=== PATIENT | male | born 1965 | race Caucasian/White ===

== ENCOUNTER 2024-02-26 09:06 | Observation (INO) ==
--- NOTE | 2024-01-28 12:34 | PAT Medication Instructions ---
Medication Instructions Date of Service January 28, 2024 Home Medications hydrochlorothiazide 25 mg tablet 25 mg PO QPM ibuprofen 200 mg tablet (Advil) 200 mg PO TID PRN lisinopril 20 mg tablet 20 mg PO QAM ASK your surgeon for instructions ibuprofen 200 mg tablet (Advil) 200 mg PO TID PRN DO NOT take the morning of surgery lisinopril 20 mg tablet 20 mg PO QAM Take evening before surgery hydrochlorothiazide 25 mg tablet 25 mg PO QPM Other Notes NOTHING TO EAT OR DRINK AFTER MIDNIGHT. If you have any questions please call us at [phone] or [phone] or [phone] or [phone]
--- NOTE | 2024-02-04 09:38 | Anesthesiology Consultation ---
Date of Service February 04, 2024 Assessment & Plan (1) Encounter for pre-operative examination: Chart Review Chart Review: Acceptable Risk for Surgery (pending surgeon ordered PCP clearance ) and Patient seen in Pre Admission Testing - Awaiting PCP clearance 02/11/24 (Dr Otero ([facility]))- please fax preop testing to PCP for review Will leave to anesthesiologist discretion DOS if anesthesia will be done GA vs SAB (mild to moderate per 2021 ECHO) - Patient is NOT an ideal OPJ candidate (currently 23 hour obs) Per PAT appt on 02/04/24, no recent illness/disease exposures, illness related symptoms, or recent illness/disease positive tests. Will leave to surgeon's discretion if preop Covid testing needed Teaching & Discussion Pre-Anesthesia Teaching/Discussion Notes: Instructed NPO after midnight before surgery,except medications with 15 cc of water. Medication instructions provided according to the PAT guidelines. History Surgery Operation Date: 02/26/24 08:10 Proposed Procedures p Right Total Hip Arthroplasty - Amos Fernando MD Height/Weight Height: 5 ft 10 in Weight: 95.8 kg Allergies Allergy/AdvReac Type Severity Reaction Status Date / Time No Known Allergies Allergy Verified 01/26/24 09:41 Medications Home Medications Medication Instructions Recorded Confirmed Last Taken hydrochlorothiazide 25 mg tablet 25 mg PO QPM 01/26/24 01/26/24 Unknown ibuprofen 200 mg tablet (Advil) 200 mg PO TID PRN Pain 01/26/24 01/26/24 Unknown lisinopril 20 mg tablet 20 mg PO QAM 01/26/24 01/26/24 Unknown Past Medical History Medical History Aortic stenosis Bicuspid AV- mild to moderate aortic stenosis per ECHO 10/2021 Follows with PCP only Hypertension Osteoarthritis Exercise / Class Metabolic Activity II 4-5 Yardwork/Stairs/Walk up hill (one flight of stairs - no chest pain or SOB ) Past Family History Family History Mother Family history of reaction to anesthesia "long time to wake up" Past Surgical History Surgical History H/O wisdom tooth extraction History of colonoscopy (2022) with 1 benign polyp S/P tendon repair (2011) left knee quad tendon repair Past Anesthesia History No Hx of Anesthesia Complications and No Family Hx of Anesthesia Complications (with exception to mother- slow to wake- just groggy - no reintubation or ICU stay) History of PONV No Hx of PONV and No Hx of Motion Sickness Social History Smoking Status: Never smoker Do You Dip or Chew Tobacco: No Hx Alcohol Use: Yes Alcohol type: beer and hard liquor alcohol intake frequency: a few times a week Hx Substance Use: No substance use type: does not use Review of Systems Patient denies chest pain, shortness of breath, dyspnea on exertion, reflux, cough, wheezing, palpitations. No hx of seizures, stroke, TN, apnea/snoring. No hx of blood clots or blood transfusions Physical Exam Vital Signs VITALS BP 124/74 P 68 TEMP 98.1 SP02 97% RESP 16 Constitutional no acute distress ENMT Mouth: + small oral opening; no TMJ clicking Thyromental Distance: > or= 3.5 Finger Breadths (4.0) Mallampati Class: I Mouth / Teeth: 2 1. Missing 2. Missing Crowns to side teeth and molars Neck neck extension not limited Respiratory normal respiratory effort; no respiratory distress Auscultation: lungs clear to auscultation bilaterally; no wheezes Cardiovascular Rate/Rhythm: regular rate and regular rhythm Heart Sounds: + murmur (III/ murmur ) Vessels: no carotid bruit Musculoskeletal Spine: no pain with cervical ROM Extremities: extremities normal to inspection Psychiatric Orientation: alert Lab Results Anesthesia Preop Results Results Anesthesia Widget: 2 WBC 5.43 K/ul (4.8-10.8) 02/04/24 Hgb 14.0 g/dl (14.0-18.0) 02/04/24 Hct 40.6 % (42.0-52.0) L 02/04/24 Plt 215 K/uL (130-400) 02/04/24 Na 136 mmol/L (136-145) 02/04/24 K 3.8 mmol/L (3.5-5.1) 02/04/24 Cl 102 mmol/L (98-107) 02/04/24 CO2 27 mmol/L (21-32) 02/04/24 BUN 14 mg/dl (6-23) 02/04/24 Creat 0.76 mg/dl (0.6-1.4) 02/04/24 Glucose Level 89 mg/dl (70-99(Fasting)) 02/04/24 PT 10.7 Seconds (9.0-12.0) 02/04/24 PTT 26 Seconds (21-31) 02/04/24 INR 1.0 (0.9-1.1) 02/04/24 Urine Color Yellow 02/04/24 Urine Appearance Clear (Clear) 02/04/24 Urine pH 8.5 (4.5-7.5) H 02/04/24 Urine Specific [place] 1.015 (1.000-1.030) 02/04/24 Urine Protein Negative (Negative) 02/04/24 Urine Glucose (UA) Negative (Negative) 02/04/24 Urine Ketones Negative (Negative) 02/04/24 Urine Blood Negative (Negative) 02/04/24 Urine Nitrite Negative (Negative) 02/04/24 Urine Bilirubin Negative (Negative) 02/04/24 Urine Urobilinogen Negative (Negative) 02/04/24 Urine Leukocyte Esterase Negative (Negative) 02/04/24 Blood Type A Positive 02/04/24 Antibody Screen NEGATIVE 02/04/24 Testing Electrocardiogram Date: 02/04/24 Findings: + NSR @ (69bpm) Voltage criteria for LVH Nondiagnostic lateral Q waves When compared to EKG from January 09, 2012- no significant change was found per cardio Echocardiogram Date: 10/24/21 EF: 55% Other Findings: + LVH (mild/concentric ) and + diastolic dysfunction (Grade I ) Normal LV size with low normal systolic function AK of the basal inferior and inferolateral ventricular mccain Calcified, bicuspid AV- with mild to moderate aortic stenosis (AV mean PG 17mmHg, AV peak velocity 2.51m/s, BRENDON 2.0cm2, LVOT VTI/AV VTI ration is 0.38, BRENDON index is 0.88cm2/m2) Mild AR. Normal aortic root, ascending aorta and aortic arch (Discussed with Dr. Lopez- patient can proceed as scheduled)
--- NOTE | 2024-02-04 16:07 | History & Physical Report ---
Date of Service February 04, 2024 Assessment & Plan (1) Osteoarthritis of right hip: Plan: PRE-OP Diagnosis: Right hip osteoarthritis Planned Procedure: Right Total Hip Arthroplasty Plan: Patient is scheduled to undergo this procedure at the [facility] with a 23-hour observation admission with Dr. Fernando on February. Risks and complications of the procedure such as: Infection, bleeding, pain, scarring, nerve blood vessel damage, weakness, wound problems, stiffness, incomplete relief of symptoms, hardware failure, hardware loosening, wear, fracture, tendon or ligament injury, dislocation, leg length inequality, blood clots, Embolism, heart attack, stroke and were explained to the patient at his visit today. Informed consent to perform the procedure was obtained. Patient has an appointment to meet with anesthesia later this morning and while there will obtain CBC with differential, complete metabolic panel, PT/INR, blood type and screen, urinalysis, urine culture and sensitivity, EKG and a nasal culture for MRSA. Patient will also need preoperative medical clearance from their primary care provider. Patient is scheduled to see them on February 10 at 9:45 AM. Patient states that he plans on doing in-home physical therapy for the first 1 to 2 weeks postoperatively with [facility]. Patient states that he will most likely elect to do outpatient physical therapy at our PT clinic. Patient will need a walker, raised toilet seat, shower chair and a hip kit. During today's visit we reviewed the total hip packet as well as precautions. We discussed discharge planning from the hospital. I provided paperwork to obtain a handicap placard for their vehicle. We discussed lectures offered by [facility] in regards to joint replacement surgery via Zoom. I advised the patient that upon discharge from hospital we will prescribe a narcotic pain medication and anti-inflammatory. Patient will also be on an 81 mg aspirin twice daily for blood clot prevention. Patient will be scheduled for 2-week postoperative follow-up visit with Jaya Gordon PA-C on March 10. This chart was completed utilizing [employer] voice recognition software. Grammatical errors, random word insertions, pronoun errors, and in complete sentences are an occasional consequence of the system. Any questions or concerns about the content, text, or information contained within the body of this dictation should be addressed directly to the physician for clarification. History of Present Illness Chief Complaint: Chief Complaint: Right hip pain Primary Care Provider: NO PCP History of Present Illness (including history relevant to procedure): This 58-year-old male presents to the clinic today for his preoperative history and physical. He has had pain starting 3 years ago. He has been treated by a chiropractor who has managed his symptoms. The chiropractor recommended he see an orthopedist after x-rays showed arthritis. He has inability to run. He has pain in his groin. The pain is exacerbated by twisting. When lying down he has some pain. He uses topical muscle rubs and Advil as needed. He enjoys baseball and fishing which he has not done due to his hip. Patient is electing to proceed with surgical intervention. Review Of Systems: A 12 point review of symptoms is performed and unremarkable except for those things noted in the HPI and PMH Past Medical History: Problems: Arthritis of right hip Nocturia Obesity Proteinuria HTN (hypertension) Left ventricular hypertrophy by electrocardiogram Rupture of quadriceps tendon Left knee ELEVATED BLOOD PRESSURE READING WITHOUT DIAGNOSIS OF HYPERTENSION Procedure History Procedure Procedure Date Comments none [place] teeth Colonoscopy 04/02/2023 - - Repeat colonoscopy in 5 years. - A) Transverse colon polyp, polypectomyTubular adenoma. B) Descending colon polyp, polypectomyTubular adenoma. - - One 4 mm polyp in the transverse colon, removed with a jumbo cold forceps. Resected and retrieved. - One 6 mm polyp in the descending colon, removed with a hot snare. Resected and retrieved. - The examination was otherwise normal. - Await pathology Left quad repair 01/14/2012 Allergies and Sensitivities: NKA Current Home Meds: (Last Updated 02/03 08:25) glucosamine (glucosamine 750 mg oral tablet) 1,500 mg PO Daily hydroCHLOROthiazide (hydroCHLOROthiazide 25 mg oral tablet) 1 tab PO Daily ibuprofen (Advil 200 mg oral tablet) 200 mg PO q4h lisinopril (lisinopril 20 mg oral tablet) TAKE ONE TABLET BY MOUTH EVERY DAY magnesium sulfate/potass Cl/sodium sulf (Sutab oral tablet) FOLLOW INSTRUCTIONS PROVIDED BY ENDOSCOPY [facility]ENTER ondansetron (Zofran 4 mg oral tablet) 8 mg PO tid PRN: as needed for nausea/vomiting zoster vaccine, inactivated (Shingrix intramuscular injection) 0.5 mL IM ONCE repeat dose in 2 to 6 months Initial Wt: 02/03 95.4 kg 210 lb Allergies Allergy/AdvReac Type Severity Reaction Status Date / Time No Known Allergies Allergy Verified 01/26/24 09:41 Home Medications Medication Instructions Recorded Confirmed Type hydrochlorothiazide 25 mg tablet 25 mg PO QPM 01/26/24 01/26/24 History ibuprofen 200 mg tablet (Advil) 200 mg PO TID PRN Pain 01/26/24 01/26/24 History lisinopril 20 mg tablet 20 mg PO QAM 01/26/24 01/26/24 History Past Med/Surg History Problem List (Updated 02/04/24 @ 16:06 by Austin Galvez PA-C) Osteoarthritis of right hip Encounter for pre-operative examination Hx of colonic polyp Medical History Aortic stenosis Bicuspid AV- mild to moderate aortic stenosis per ECHO 10/2021 Follows with PCP only Osteoarthritis Hypertension Surgical History H/O wisdom tooth extraction History of colonoscopy (2022) with 1 benign polyp S/P tendon repair (2011) left knee quad tendon repair Family History Mother Family history of reaction to anesthesia "long time to wake up" Social History Smoking Status: Never smoker Second Hand Exposure: No; Do You Dip or Chew Tobacco: No; Hx Alcohol Use: Yes Alcohol type: beer and hard liquor Hx Substance Use: No Preferred Language: Belarusian Communication Ability: Effective Pedorthist Required: No Beliefs That Will Affect Care: None Current Living Situation: Spouse Feels Safe at Home: Yes Assistive Devices: Glasses Review of Systems All systems reviewed & are unremarkable except as noted in Subjective Physical Exam Physical Exam: Physical Exam: (relevant to the procedure, including heart and lung evaluation) General: Alert and oriented x 3 with proper grooming and hygiene Eyes: Pupils are equal and reactive to light with accommodation. Extraocular moods are intact Throat: Posterior oropharynx clear with absence of edema, erythema or exudate Cardiac: Regular rate and rhythm with a grade 3/6 holosystolic murmur heard best over the left upper and lower sternal borders Lungs: Clear to auscultation throughout no wheezing, rales or rhonchi Abdomen: Obese, nondistended, nontender with NABS Extremities: Right hip; flexion is limited to 90 degrees, internal rotation to - 10 degrees and external rotation to 35 degrees. ARNALDO test is positive. Straight leg raise test positive. Scour and impingement tests are positive. Stinchfield test is positive. Patient experiences tenderness to palpation over the groin. Patient is neurovascular intact in the right lower extremity Neuro: Cranial nerves II through XII are intact no motor or sensory deficit Skin: Normal in appearance with no open skin areas or discharge Results & Data Diagnostic Findings Studies (relevant to the procedure): AP pelvis, false profile, and crosstable lateral views of the right hip which shows significant arthritis in the right hip. Osteophyte formation. There is a cyst in the femoral head as well as sclerosis.
[~2024-02-26 09:06] MED LIST: BUPIVACAINE 0.5 % 5 MG/1 ML PF 10ML VIAL ONE
[2024-02-26] MEDS: LR 500ML BOLUS, THEN 15ML/HR IV SCH (09:34)
[2024-02-26] MEDS: LR 60ML/HR IV SCH (09:34)
[2024-02-26] MEDS: Scopolamine 1 MG TDSY TD SCH (09:35)
[2024-02-26] MEDS: CeleBREX 200 MG CAP PO SCH (09:35)
[2024-02-26] MEDS: ACETAMINOPHEN 500 MG TAB PO SCH ×2 (09:35→14:42)
[2024-02-26] MEDS: traMADol HCL 50 MG TABLET PO SCH (09:35)
[2024-02-26] MEDS: FAMOTIDINE 20 MG TAB PO SCH (09:35)
[2024-02-26] MEDS: dexAMETHasone**PF** 10 MG/ML VIAL IV SCH (09:36)
[2024-02-26] MEDS ORDERED: MIDAZOLAM HCL 1 MG/ML 2ML VIAL ONE (09:58)
[2024-02-26] MEDS ORDERED: ATROPINE SULFATE 0.1 MG/ML 10ML SYR IV PRN (10:19)
[2024-02-26] MEDS ORDERED: ePHEDrine sulfate 50 MG/ML AMP IV PRN (10:19)
[2024-02-26] MEDS ORDERED: DROPERIDOL 5 MG/2 ML VIAL IV PRN (10:19)
--- NOTE | 2024-02-26 10:37 | History & Physical Bridge Note ---
Date of Service February 26, 2024 History & Physical Bridge Note I have examined the patient, reviewed the History & Physical and in the interval since the performance of the History & Physical I have noted the following changes of clinical significance: no changes noted
[2024-02-26] MEDS: TRANEXAMIC ACID 1,000 MG **IV Pre-op IV SCH (10:58)
[2024-02-26] MEDS: ceFAZolin 2000MG 2,000 MG/15 ML SYR IV SCH ×2 (11:19→21:00)
[2024-02-26] MEDS ORDERED: fentaNYL citrate PF 100 MCG/2 ML VIAL ONE ×2 (11:24→11:57)
[2024-02-26] MEDS ORDERED: HYDROmorphone INJ 2 MG/ML SYR/VIAL ONE (11:45)
[2024-02-26] MEDS: ORTHO JOINT ANESTHETIC ONE (12:13)
[2024-02-26] MEDS: TRANEXAMIC ACID 1,000 MG **IV Intra-op IV SCH (12:20)
[2024-02-26] MEDS: ROPIVACAINE 0.5% HCL/PF 246 MG, Ketorolac (*for OR use only*) 30 MG, EPINEPHrine 30MG/3... INFIL SCH (12:29)
[2024-02-26] MEDS ORDERED: SUGAMMADEX SODIUM 200 MG/2 ML VIAL IV ONE (12:33)
[2024-02-26] MEDS ORDERED: PROPOFOL IV EMULSION 10 MG/ML 20 ML VIAL IV ONE (12:33)
[2024-02-26] MEDS ORDERED: LIDOCAINE 2% 2 ML VIAL/AMP(20MG/ML) INFIL ONE (12:33)
[2024-02-26] MEDS ORDERED: ROCURONIUM BROMIDE 10 MG/ML 5 ML VIAL IV ONE (12:33)
--- NOTE | 2024-02-26 12:59 | Operative Report ---
Post Operative Report Pre & Post Diagnosis Operation Date: 02/26/24 10:40 Pre-Op Diagnosis: Right Hip Osteoarthritis Post-Op Diagnosis: Right Hip Osteoarthritis I identified the patient and participated in the time-out.: Yes Procedure Operation Date: 02/26/24 10:40 Actual Procedures p Right Total Hip Arthroplasty(Right) - Amos Fernando MD Surgeon Amos Fernando MD Health Sciences Manager COLLETTE Galvez PA-C. No resident or fellow was available to assist. Estimated Blood Loss 250 Findings Consistent with Post-Op Diagnosis Fluids 1700 cc crystalloid Specimens right femoral head Anesthesia Type General Complications none Disposition Disposition: Recovery Room Indications 58-year-old male with right hip arthritis refractory to conservative management. X-rays demonstrate [id number] arthritis, large subchondral cyst in the superior femoral head, and subchondral sclerosis. I had a long discussion with him about his diagnosis and treatment options. After reviewing all the risks and benefits of surgery, alternatives to surgery, and expected outcomes he elected to proceed. All questions were answered. Informed consent was signed. Description of Procedure Patient was identified in the preoperative holding area where the surgical site, right hip Right hip, was marked. A spinal anesthetic was placed, then the patient was brought back to the main operating room, placed in the operating table and moved into the lateral decubitus position. Axillary roll was placed. All bony prominences were padded. Perioperative antibiotics and tranexamic acid 1 gram IV were administered. The operative extremity was prepped and draped in the normal sterile fashion. Prior to incision a multidisciplinary timeout was called. All in the room were in agreement. We began by making an incision for a posterior approach to the hip. We dissected down through subcutaneous tissues to the level of the fascia. The fascia was incised in line with the incision. [place] bow was placed. Fatty tissue was reflected posteriorly off the back of the greater trochanter to expose the piriformis and short external rotators of the hip. Quadratus femoris was taken off the femur subperiosteally. The piriformis and short external rotators were dissected off the posterior aspect of the hip. A box cut was made in the capsule. Inferior hip capsule was released off the femur. The femoral head was dislocated. The femoral neck cut was made at our preoperative template. The acetabulum was then exposed. The labrum was sharply excised. Contents of the cotyloid fossa were removed with electrocautery. We then began reaming at a size 8 mm less than our preoperative template. We reamed up by [address] way up to a size 56 mm cup. This gave us good bleeding cancellus bone circumferentially. The acetabulum was then irrigated out and dried. The real [place] Gription cup was then impacted down into position with 45 degrees of lateral opening and 25 degrees of anteversion. A single cancellous bone screw was placed up into the ilium. Excellent fixation was obtained. A trial liner for a 36 mm femoral head was then placed. Next we turned our attention to the femur. There was a good amount of bleeding from the femoral canal, so anesthesia gave him another 1 gram of IV tranexamic acid, which did help somewhat. The lateral neck was removed with a box osteotome. Intramedullary guide was used to establish the intramedullary canal. We then broached all the way up to a size 7. We began trialing with a high o ffset neck and a +8.5 head. Hip was reduced. Leg lengths were symmetric. The hip was stable in extension and external rotation, and stable in the sleeper position. At 90 degrees of hip flexion the hip could be internally rotated 70 degrees before levering out of the cup. I was very happy with the stability exam. Therefore the hip was dislocated and the femoral trial was removed. The acetabulum was re-exposed, and the trial liner was removed. [place] hole eliminator screw was placed. An Altrx polyethylene liner for a 36 mm femoral head was then impacted into the shell. The locking mechanism was checked to ensure that it had engaged which it had. The femur was re-exposed. The femoral canal was irrigated and dried. The real [place] femoral stem was opened up. This was impacted down into position. The femoral head was opened up and gently impacted down onto the trunnion. The hip was atraumatically reduced. Another 1 gram of IV tranexamic acid was started prior to closure. The wound was irrigated out with sterile Betadine solution. The periarticular injection cocktail was then placed. The short external rotators, piriformis, and posterior capsule were repaired through drill holes in the greater trochanter using #2 Vicryl. The fascia was run with a looped #1 PDS. The subcutaneous layer was closed with #1 PDS. The dermal layer was closed with 2-0 Vicryl. Romero line was used for the skin followed by a Silverlon dressing. A compressive dressing was then placed. The patient was then rolled supine. Leg lengths were rechecked and were symmetric. An abduction pillow was placed. Sedation was lifted and the patient was transferred to the recovery room in stable condition. Summary of implants: Depuy [place] Gription Acetabular Shell Sector Cup, 56 mm outer diameter [place] Cancellous bone screw, 6.5 x 40 mm [place] hole eliminator [place] Altrx Polyethylene Acetabular Liner, Neutral, with a 36 mm inner diameter DePuy Actis collared cementless Femoral stem, 12/14 taper, size 7 high offset 36 mm ceramic femoral head with +8.5 offset Postoperative course: Patient will be admitted overnight from the recovery room. Patient will be weightbearing as tolerated with posterior hip precautions. Aspirin for DVT prophylaxis I attest to the content of the Intraoperative Record and any orders documented therein. Any exceptions are noted below.
[2024-02-26] MEDS ORDERED: ONDANSETRON INJ 2 MG/ML 2 ML VIAL IV PRN (13:12)
[2024-02-26] MEDS ORDERED: HYDROmorphone INJ 0.5 MG/0.5 ML SYR IV PRN (13:12)
[2024-02-26] MEDS ORDERED: TAMSULOSIN HCL 0.4 MG CAP PO PRN (13:12)
[2024-02-26] MEDS ORDERED: NALOXONE HCL 0.4 MG/1 ML VIAL/CARP IV PRN (13:12)
[2024-02-26] MEDS ORDERED: diphenhydrAMINE 50 MG/ML VIAL IV PRN (13:12)
[2024-02-26] MEDS ORDERED: bisacodyL 10 MG SUPP PR PRN (13:12)
[2024-02-26] MEDS ORDERED: ALUMINUM/MAGNESIUM SUSP 30 ML UDC PO PRN (13:12)
[2024-02-26] MEDS ORDERED: MAGNESIUM HYDROXIDE SUSP 30 ML UDC PO PRN (13:12)
[2024-02-26] MEDS ORDERED: oxyCODONE HCL IR 5 MG TAB (IMMEDIATE RELEASE) PO PRN (13:12)
[2024-02-26] MEDS ORDERED: METOCLOPRAMIDE HCL INJ 5 MG/ML 2 ML VIAL IV PRN (13:12)
--- NOTE | 2024-02-26 13:12 | Operative Report ---
Post Operative Report Pre & Post Diagnosis Operation Date: 02/26/24 10:40 Pre-Op Diagnosis: Right Hip Osteoarthritis Post-Op Diagnosis: Right Hip Osteoarthritis I identified the patient and participated in the time-out.: Yes Procedure Operation Date: 02/26/24 10:40 Actual Procedures p Right Total Hip Arthroplasty(Right) - Amos Fernando MD Surgeon Amos Fernando MD Safe And Vault Installer COLLETTE Galvez PA-C. No resident or fellow was available to assist. Estimated Blood Loss 250 Findings Consistent with Post-Op Diagnosis Specimens femoral head Description of Procedure I was present during the entire procedure assisting with positioning, prepping, draping, wound retraction, wound closure, dressing and abduction pillow placement. No fellow present. Please see Dr. Fernando procedure note for specifics of the case. I attest to the content of the Intraoperative Record and any orders documented therein. Any exceptions are noted below.
[2024-02-26] MEDS ORDERED: IBUPROFEN 200 MG TAB PO PRN (13:15)
[2024-02-26] MEDS ORDERED: ESMOLOL HCL INJ 10 MG/ML 10ML VIAL IV ONE (13:25)
[2024-02-26] MEDS: HYDROmorphone INJ 2 MG/ML SYR/VIAL IV PRN (13:39)
--- NOTE | 2024-02-26 14:32 | Anesthesiology Progress Note ---
Date of Service February 26, 2024 Anesthesia Post Procedure Vital Signs Vital Signs: Temp Pulse Pulse Resp BP Pulse Ox O2 Del Method 02/26/24 14:21 36.4 C L 73 18 132/73 94 Room Air 02/26/24 14:05 69 17 146/71 H 98 Nasal Cannula 02/26/24 13:55 36.6 C 63 12 141/69 H 97 Nasal Cannula 02/26/24 13:45 59 L 12 134/69 97 Nasal Cannula 02/26/24 13:35 62 21 125/57 L 93 Room Air 02/26/24 13:25 63 17 136/69 98 Room Air 02/26/24 13:17 36.1 C L 65 21 156/42 H 98 Oxymask 02/26/24 09:25 36.5 C 66 21 140/79 97 Room Air O2 Flow Rate 02/26/24 14:21 02/26/24 14:05 2 02/26/24 13:55 2 02/26/24 13:45 2 02/26/24 13:35 02/26/24 13:25 02/26/24 13:17 10 02/26/24 09:25 Pain Intensity Right Groin: Pain Intensity: 3 Transfer of Care Handoff Completed per policy Notes Mental Status: alert / awake / arousable and participated in evaluation Nausea / Vomiting: adequately controlled Pain: adequately controlled Airway Patency, RR, SpO2: stable & adequate BP & HR: stable & adequate Hydration State: stable & adequate Anesthetic Complications: no major complications apparent and Pt Satisfied with anesthetic care
[2024-02-26] MEDS: SODIUM CHLORIDE 0.9% 1,000 ML IV SCH (14:43)
--- OUTSIDE RECORDS SUMMARY | 2024-02-26 15:42 | External Medical Summary | Continuity of Care Document ---
Author Name Unknown Organization [place] [id number] Address [address] [place] [phone] Care Team Providers Care Leveler Name Role Phone Kj Otero Primary Care Physician [phone] [facility] [id number] Date(s): 02/04/24 - 02/04/24 [facility] [address] [place] [id number] [facility] [address] [place] [id number] Encounter Diagnosis Preop examination(Discharge Diagnosis) - 02/04/24 Arthritis of right hip(Discharge Diagnosis) - 02/04/24 Discharge Disposition: Home or Self Care Attending Physician: AXEL Galvez Dennis Referring Physician: MD Kassie, Amos Foote Allergies, Adverse Reactions, Alerts No Known Allergies Immunizations Given and Recorded Vaccine Date Status Refusal Reason zoster vaccine, inactivated 06/09/23 Recorded SARS-CoV-2 (COVID-19) mRNA-1273 vaccine 05/22/22 R ecorded SARS-CoV-2 (COVID-19) mRNA-1273 vaccine 1 12/14/20 Recorded SARS-CoV-2 (COVID-19) mRNA-1273 vaccine 2 11/16/20 Recorded influenza virus vaccine, inactivated 3 05/10/20 Re corded tetanus/diphtheria/pertuss, acel (Tdap) 09/18/18 G iven 1Result Comment: 2021-10-17: Historical information-source unspecified 2Result Comment: 2021-10-17: Historical information-source unspecified 3Result Comment: Fluzone Quad [facility] Medications Advil 200 mg oral tablet Start: 11/20/12 9:16:00 AM EDT, 1 tab, PO, q4h Start Date: 11/20/12 Status: Ordered glucosamine 750 mg oral tablet Start: 01/07/12 8:49:00 AM EDT, 2 tab, PO, Daily Start Date: 01/07/12 Status: Ordered hydroCHLOROthiazide 25 mg oral tablet Start: 01/06/24 1:33:00 PM EDT, 1 tab, PO, Daily, Disp# 30 tab, Refills: 3, Pharmacy: [place] [id number] Start Date: 01/06/24 Status: Ordered lisinopril 20 mg oral tablet Start: 01/01/24 12:34:00 PM EDT, See Instructions, Disp# 90 tab, Refills: 3, TAKE ONE TABLET BY MOUTH EVERY DAY, Pharmacy: [facility] [place] [id number] Start Date: 01/01/24 Status: Ordered Shingrix intramuscular injection Start: 03/12/23 8:04:00 AM EDT, 0.5 mL, IM, ONCE, Disp# 1 each, Refills: 1, repeat dose in 2 to 6 months, Pharmacy: [facility] [place] [id number] Start Date: 03/12/23 Status: Ordered Sutab oral tablet Start: 03/17/23 7:12:00 AM EDT, See Instructions, Disp# 24 tab, Refills: 0, FOLLOW INSTRUCTIONS PROVIDED BY [facility], Note to Pharmacy: PLEASE USE COUPON CODE ; BIN [id number]; PCN CN; GRP [id number]; ID [id number], Pharmacy: [facility] [place] [id number] Start Date: 03/17/23 Status: Ordered Zofran 4 mg oral tablet Start: 03/17/23 7:12:00 AM EDT, 2 tab, PO, tid, Disp# 3 tab, Refills: 0, PRN: as needed for nausea/vomiting, Pharmacy: [place] [id number] Start Date: 03/17/23 Status: Ordered Mental Status 02/04/24 Barriers to Learning one year None evide nt Mandatory Health Literacy Documentation Yes Health Literacy Communication Barriers N ever Primary Language Frisian Problem List Condition Confirmation Course Effective Dates Status Health Status Informant Arthritis of right hip Confirmed Active HTN (hypertension) Confirmed Active Left knee 1 Confirmed Active Left ventricular hypertrophy by electrocardiogram Confirmed Active Nocturia Confirmed Active Obesity Confirmed Active Proteinuria Confirmed Active Rupture of quadriceps tendon Confirmed Active 1Left knee surgery. Diagnosis Diagnosis Type Effective Dates Health Status Clinical Service Informant Preop examination Discharge Diagnosis 02/04/24 Arthritis of right hip Discharge Diagnosis 02/04/24 Procedures Procedure Date Related Diagnosis Body Site Status Colonoscopy 1, 2, 3 8/23/23 Compl eted Left quad repair 01/14/12 Complete d none Completed [place] teeth Completed 1- Repeat colonoscopy in 5 years. 2- One 4 mm polyp in the transverse colon, removed with a jumbo cold forceps. Resected and retrieved. - One 6 mm polyp in the descending colon, removed with a hot snare. Resected and retrieved. - The examination was otherwise normal. - Await pathology 3A) Transverse colon polyp, polypectomy Tubular adenoma. B) Descending colon polyp, polypectomy Tubular adenoma. Vital Signs Most recent to oldest [Reference Range]: 1 Height 177.5 cm (02/04/24 8:26 AM) Patient Weight 95.4 kg (02/04/24 8:26 AM) Body Mass Index 30.28 kg/m2 (02/04/24 8:26 AM) Temperature [36.5-37.9 DegC] 36.5 DegC (02/04/24 8:26 AM) Respiratory Rate 20 br/min (02/04/24 8:26 AM) Blood Pressure 130/80mmHg (02/04/24 8:26 AM) Social History Social History Type Response Smoking Status Never smoked cigaret reese Sex Male Patient Care team information Care Team Personnel Name: MD Otero Dongsheng Position: Physician - Family Med Member Role: Primary Care Provider Address: Address: [facility] [address] [address] [place] Care Team Related Persons Name: MORENITA KEANE Address: home [address] [place] [phone] Name: MORENITA KEANE Address: [facility] Address: home [address], [place] [phone]
--- OUTSIDE RECORDS SUMMARY | 2024-02-26 15:42 | External Medical Summary | Continuity of Care Document ---
Author Name Unknown Organization [place] [address] [address] [place] [phone] Care Team Providers Care Drafting Supervisor Name Role Phone Kj Otero Primary Care Physician [phone] Encounter [facility] [id number] Date(s): 02/11/24 - 02/11/24 [facility] [address] [place] [address] [address] [phone] Encounter Diagnosis Preoperative examination(Discharge Diagnosis) - 02/11/24 Discharge Disposition: Home or Self Care Attending Physician: DO Mccallum Allison B Allergies, Adverse Reactions, Alerts No Known Allergies Assessment and Plan Extracted from: Title:Office Visit Note Author:DO Page Nicho las Date:02/11/24 1.Preoperative examination Plan for R hip replacement RCRI Class I Acceptable risk for surgery Immunizations Given and Recorded Vaccine Date Status [...] Historical information-source unspecified 3Result Comment: Fluzone Quad [facility] Medications Advil 200 mg oral tablet Start: 11/20/12 9:16:00 AM EDT, 1 tab, PO, q4h Start Date: 11/20/12 Status: Ordered glucosamine 750 mg oral tablet Start: 01/07/12 8:49:00 AM EDT, 2 tab, PO, Daily Start Date: 01/07/12 Status: Ordered hydroCHLOROthiazide 25 mg oral tablet Start: 01/06/24 1:33:00 PM EDT, 1 tab, PO, Daily, Disp# 30 tab, Refills: 3, Pharmacy: [place] [id number] Start Date: 01/06/24 Status: Ordered lisinopril 20 mg oral tablet Start: 01/01/24 12:34:00 PM EDT, See Instructions, Disp# 90 tab, Refills: 3, TAKE ONE TABLET BY MOUTH EVERY DAY, Pharmacy: [facility] [place] [id number] Start Date: 01/01/24 Status: Ordered Shingrix intramuscular injection Start: 03/12/23 8:04:00 AM EDT, 0.5 mL, IM, ONCE, Disp# 1 each, Refills: 1, repeat dose in 2 to 6 months, Pharmacy: [place] [id number] Start Date: 03/12/23 Status: Ordered Sutab oral tablet Start: 03/17/23 7:12:00 AM EDT, See Instructions, Disp# 24 tab, Refills: 0, FOLLOW INSTRUCTIONS PROVIDED BY [facility], Note to Pharmacy: PLEASE USE COUPON CODE ; BIN [id number]; PCN CN; MANUELA [id number]; ID [id number], Pharmacy: [facility] [place] [id number] Start Date: 03/17/23 Status: Ordered Zofran 4 mg oral tablet Start: 03/17/23 7:12:00 AM EDT, 2 tab, PO, tid, Disp# 3 tab, Refills: 0, PRN: as needed for nausea/vomiting, Pharmacy: [facility] [place] [id number] Start Date: 03/17/23 Status: Ordered Mental Status 02/11/24 Barriers to Learning one year None evide nt Mandatory Health Literacy Documentation Yes Health Literacy Communication Barriers N ever Primary Language Amharic Problem List Condition Confirmation Course Effective Dates Status Health Status Informant Arthritis of right hip Confirmed Active HTN (hypertension) Confirmed Active Left knee 1 Confirmed Active Left ventricular hypertrophy by electrocardiogram Confirmed Active Nocturia Confirmed Active Obesity Confirmed Active Proteinuria Confirmed Active Rupture of quadriceps tendon Confirmed Active 1Left knee surgery. Diagnosis Diagnosis Type Effective Dates Health Status Clinical Service Informant Preoperative examination Discharge Diagnosis 02/11/24 Non-Specified Procedures Procedure Date Related Diagnosis Body Site Status Colonoscopy 1, 2, 3 04/02/23 Compl eted Left quad repair 01/14/12 Complete d none Completed [place] teeth Completed 1- Repeat colonoscopy in 5 [...] oldest [Reference Range]: 1 Height 177.5 cm (02/11/24 10:01 AM) Patient Weight 95.5 kg (02/11/24 10:01 AM) Body Mass Index 30.31 kg/m2 (02/11/24 10:01 AM) Temperature [36.5-37.9 DegC] 36.8 DegC (02/11/24 10:01 AM) Blood Pressure 138/84mmHg (02/11/24 10:01 AM) BP Location # 1 Left Arm (02/11/24 10:01 AM) Social History Social History Type Response Smoking Status Never smoked cigaret reese Sex Male [facility]CM Outpt Note * MD sIak, Liu Srinivasan: MODIFY MD Parisi Mark B: MODIFY Event Display: [facility]CM Outpt Note Authored Date: Chief Complaint Here for pre op clearance. Having rt hip replacement. History of Present Illness Preoperative evaluation R hip replacement Requested by: [Dr Bryan] Planned surgery: [_] high risk (aortic, peripheral vascular) [x] intermediate risk (intraperitoneal, intrathoracic, CEA, head and neck, orthopedic, prostate) [_] low risk (endoscopic or superficial procedures, cataract surgery, breast surgery, ambulatory procedures) Planned anesthesia: General, no issues with anaesthesia in the past Exercise tolerance 4 METs: Climbing flight of stairs Walking up a hill Walking on level ground at 4 mph Heavy house work Bleeding tendency: low risk Substance use:EtOHsparingly Prior anesthesia:noissues Revised Cardiac Risk Index: Score [0] [_] High Risk Surgery [_] Ischemic Heart Disease [_] History of CHF [_] History of cerebrovascular disease [_] Insulin therapy for DM [_] Pre-op Cr >2 Physical Exam Vitals & Measurements T:36.8C BP:138/84 SpO2:97% HT:177.5cm WT:95.500kg(Dosing) WT:95.5kg BMI:30.31 PHQ2 Data(Data Documented on:02/11/2024 10:00) Emotional health assessment NEGATIVE GENERAL: No acute distress. Well developed and well nourished. Vital signs reviewed as above. EYES: Anicteric sclerae. HENT: Moist mucous membranes. RESPIRATORY: Clear to auscultation bilaterally.No wheezing, rales, orrhonchi. CARDIOVASCULAR: Regularrate and rhythm. very mild systolic murmur EXTREMITIES: No gross deformities. SKIN: Warm, dry. NEUROLOGIC: Alert and oriented. Normal speech. No gross focal neurological deficits. PSYCHIATRIC: Cooperative. Appropriate mood and affect. Assessment/Plan 1.Preoperative examination Plan for R hip replacement RCRI Class I Acceptable risk for surgery Attestation I saw the patient and confirmed the villarreal portions of the history and physical exam and agree with the above impression and plan. Problem List/Past Medical History Ongoing Arthritis of right hip ELEVATED BLOOD PRESSURE READING WITHOUT DIAGNOSIS OF HYPERTENSION HTN (hypertension) Left knee Left ventricular hypertrophy by electrocardiogram Nocturia Obesity Proteinuria Rupture of quadriceps tendon Procedure/Surgical History Colonoscopy| Service Date: 04/02/2023Left quad repair| Service Date: 01/14/2012[facility] Medications glucosamine(glucosamine 750 mg oral tablet), 1500 mg= 2 tab, PO, Daily hydroCHLOROthiazide(hydroCHLOROthiazide 25 mg oral tablet), 1 tab, PO, Daily ibuprofen(Advil 200 mg oral tablet), 200 mg= 1 tab, PO, q4h lisinopril(lisinopril 20 mg oral tablet), See Instructions, 3 refills magnesium sulfate/potass Cl/sodium sulf(Sutab oral tablet), See Instructions ondansetron(Zofran 4 mg oral tablet), 8 mg= 2 tab, PO, tid, PRN zoster vaccine, inactivated(Shingrix intramuscular injection), 0.5 mL, IM, ONCE, 1 refills Allergies NKA Social History Smoking Status Never smoked cigarettes Tobacco - Denies Tobacco Use Family History Heart attack: Mother (Dx at 60 years) and Father (Dx at 55 years). Heart disease: Unknown. Health Status Family Member(s) Immunizations Vaccine Date Status zoster vaccine, inactivated 06/09/2023 Recorded SARS-CoV-2 (COVID-19) mRNA-1273 vaccine 05/22/2022 Recorded SARS-CoV-2 (COVID-19) mRNA-1273 vaccine 12/14/2020 Recorded Comments : 2021-10-17: Historical information-source unspecified SARS-CoV-2 (COVID-19) mRNA-1273 vaccine 11/16/2020 Recorded Comments : 2021-10-17: Historical information-source unspecified influenza virus vaccine, inactivated 05/10/2020 Recorded Comments : Fluzone Quad [facility] tetanus/diphtheria/pertuss, acel (Tdap) 09/18/2018 Given Recommendations Health Maintenance Pending(in the next year) Due Adult Influenza Vaccine due02/08/24and every 1year Adult COVID-19 Vaccination due02/11/24Unknown Frequency Adult Social Determinants of Health Screening due02/11/24Unknown Frequency Hepatitis C Screening due02/11/24One-time only Shingles Vaccine due02/11/24One-time only Satisfied(in the past 1 year) Satisfied Body Mass Index on02/11/24.Satisfied by SANTIAGO Pradhan Paula Lipid Screening on03/12/23.Satisfied by [email or web address], [id number] Shingles Vaccine on06/09/23.Satisfied by OMARI Trinidad Amber Electronic Signature on File Electronically Reviewed/Signed by: Rayo Page DO Author Signature Dt/Tm:02/11/2024 10:19 AM Resident Department of Family Medicine Electronically Reviewed/Signed by: Liu Parisi MD Cosigner Signature Dt/Tm: 02/11/2024 10:28 AM Department of Family Medicine [place] Patient Care team information Care Team Personnel Name: MD Otero Dongsheng Position: Physician - Family Med Member Role: Primary Care Provider Address: Address: [facility] [address] [address] Care Team Related Persons Name: MORENITA KEANE Address: home [address] [place], [place] [phone] Name: MORENITA KEANE Address: [facility] [place] Address: home [address] [place], [place] [phone]"
[2024-02-26] MEDS: Scopolamine CHECK PATCH PLACEMENT SCH (16:29)
--- NOTE | 2024-02-26 19:55 | XRay Report ---
XR pelvis 1-2V routine CLINICAL HISTORY: In PACU - Post Surgical TECHNIQUE: A single frontal view of the pelvis was obtained. Comparison: Comparison is made to pelvis radiograph 02/04/2024 FINDINGS: Patient is status post total hip arthroplasty with expected postsurgical changes including soft tissu e swelling, and subcutaneous emphysema. No periarticular lucency or hardware fracture is seen. IMPRESSION: Expected postoperative appearance status post placement of total hip arthroplasty. ACT 112: Negative or not required by law. Electronically signed by: Clint Hilton M.D. 02/26/2024 7:54 PM
[2024-02-26] MEDS: DOCUSATE SODIUM 100 MG CAP PO SCH (21:01)
[2024-02-26] MEDS: ASPIRIN 81 MG ECTAB PO SCH (21:01)
[2024-02-26] MEDS: hydroCHLOROthiazide 25 MG TAB PO SCH (21:03)
[2024-02-26] MEDS: SENNA 8.6 MG TAB PO SCH (21:03)
[2024-02-26] MEDS: KETOROLAC 30 MG/ML VIAL IV SCH (21:04)
[2024-02-27] MEDS ORDERED: dexAMETHasone 4 MG TAB PO SCH (08:00)
[2024-02-27] MEDS ORDERED: lisinopril 20 MG TAB PO SCH (09:00)
[2024-02-27] MEDS ORDERED: MULTIVITAMIN TAB PO SCH (09:00)
[2024-02-27] MEDS ORDERED: CeleBREX 200 MG CAP PO SCH (21:00)
--- NOTE | 2024-03-01 15:32 | Discharge Summary ---
Date of Service March 01, 2024 Admission HPI Per Admitting Provider History of Present Illness (including history relevant to procedure): This 58-year-old male presents to the clinic today for his preoperative history and physical. He has had pain starting 3 years ago. He has been treated by a chiropractor who has managed his symptoms. The chiropractor recommended he see an orthopedist after x-rays showed arthritis. He has inability to run. He has pain in his groin. The pain is exacerbated by twisting. When lying down he has some pain. He uses topical muscle rubs and Advil as needed. He enjoys baseball and fishing which he has not done due to his hip. Patient is electing to proceed with surgical intervention. Review Of Systems: A 12 point review of symptoms is performed and unremarkable except for those things noted in the HPI and PMH Past Medical History: Problems: Arthritis of right hip Nocturia Obesity Proteinuria HTN (hypertension) Left ventricular hypertrophy by electrocardiogram Rupture of quadriceps tendon Left knee ELEVATED BLOOD PRESSURE READING WITHOUT DIAGNOSIS OF HYPERTENSION Procedure History Procedure Procedure Date Comments none [place] teeth Colonoscopy 04/02/2023 - - Repeat colonoscopy in 5 years. - A) Transverse colon polyp, polypectomyTubular adenoma. B) Descending colon polyp, polypectomyTubular adenoma. - - One 4 mm polyp in the transverse colon, removed with a jumbo cold forceps. Resected and retrieved. - One 6 mm polyp in the descending colon, removed with a hot snare. Resected and retrieved. - The examination was otherwise normal. - Await pathology Left quad repair 01/14/2012 Allergies and Sensitivities: NKA Current Home Meds: (Last Updated 02/03 08:25) glucosamine (glucosamine 750 mg oral tablet) 1,500 mg PO Daily hydroCHLOROthiazide (hydroCHLOROthiazide 25 mg oral tablet) 1 tab PO Daily ibuprofen (Advil 200 mg oral tablet) 200 mg PO q4h lisinopril (lisinopril 20 mg oral tablet) TAKE ONE TABLET BY MOUTH EVERY DAY magnesium sulfate/potass Cl/sodium sulf (Sutab oral tablet) FOLLOW INSTRUCTIONS PROVIDED BY [facility] ondansetron (Zofran 4 mg oral tablet) 8 mg PO tid PRN: as needed for nausea/vomiting zoster vaccine, inactivated (Shingrix intramuscular injection) 0.5 mL IM ONCE repeat dose in 2 to 6 months Initial Wt: 02/03 95.4 kg 210 lb Admission Exam Per Admitting Provider Physical Exam: (relevant to the procedure, including heart and lung evaluation) General: Alert and oriented x 3 with proper grooming and hygiene Eyes: Pupils are equal and reactive to light with accommodation. Extraocular moods are intact Throat: Posterior oropharynx clear with absence of edema, erythema or exudate Cardiac: Regular rate and rhythm with a grade 3/6 holosystolic murmur heard best over the left upper and lower sternal borders Lungs: Clear to auscultation throughout no wheezing, rales or rhonchi Abdomen: Obese, nondistended, nontender with NABS Extremities: Right hip; flexion is limited to 90 degrees, internal rotation to - 10 degrees and external rotation to 35 degrees. ARNALDO test is positive. Straight leg raise test positive. Scour and impingement tests are positive. Stinchfield test is positive. Patient experiences tenderness to palpation over the groin. Patient is neurovascular intact in the right lower extremity Neuro: Cranial nerves II through XII are intact no motor or sensory deficit Skin: Normal in appearance with no open skin areas or discharge Principal Diagnosis Right hip osteoarthritis Discharge Exam Right hip: outer dressing removed. Silverlon clean dry and intact. No pain with passive hip flexion near 90 degrees. No discomfort with passive internal or external hip rotation. Able to SLR and dorsi/plantar flex foot. Quad strength 4/5. NV intact. Discharge Data Allergies Allergy/AdvReac Type Severity Reaction Status Date / Time No Known Allergies Allergy Verified 02/26/24 09:22 Procedures Performed Operation Date: 02/26/24 10:40 Actual Procedures p Right Total Hip Arthroplasty(Right) - Amos Fernando MD Hospital Course (1) Osteoarthritis of right hip: Patient had an uneventful overnight stay follow Right Total hip arthroplasty. He is dressed and ready to go home. Very pleased with results of surgery. WBAT with walker assistance PT/OT Keep Silverlon in place DVT prophy with Aspirin and TEDs Pain control with PO pain meds Abduction pillow use x 6 weeks Ice with EZ wrap Total hip precautions reviewed Plan is to discharge home with in home PT F/u at [facility] as scheduled With question contact our clinic at [phone] Total Time Total Time Spent Total Time Spent (In Minutes): 20 mins Discharge Plan Discharge Items Patient Disposition: Home - Self-Care Reason For Visit: Right Hip Osteoarthritis Discharge Diagnosis: Right Hip Osteoarthritis Activity: As commented below Lifting: None Bathing: Keep incision dry Bathing Comment: may shower tomorrow Sexual Activity: Wait until after follow-up appointment Exercise/Sports: Wait until after follow-up appointment Weightbearing Comment: as tolerated with walker assistance Call non-emergency contact if: you have any medication questions, your pain is not controlled, your temperature is above 101.5, your wound has increased drainage and your wound pain has increased Follow-up/Referrals: PCP,NO [Physician] - Addtl Attending Provider Instructions: Post-operative Instructions Dear Patient and Family/Friends, Before you are discharged from the hospital, it is important to know what to expect when you get home after surgery. To that end, we have created this sheet of discharge instructions which covers many commonly asked questions. Make sure you go through this sheet in its entirety with your nurse before you are discharged. Please note that we will go over the specifics of your surgery and recovery when you return for your first post-operative visit. Sincerely, Dr. Fernando Pain Expect to be in a fair amount of pain after surgery. Remember, our goal is not to eliminate your pain, but to make it tolerable. It is a good idea to stay ahead of your pain by taking the medications you were prescribed once you get home. Typically, the pain starts improving 3-7 days after surgery. You should start weaning off the narcotic pain medication (oxycodone, hydrocodone, hydromorphone, morphine) as soon as your pain improves. Please call our office if your pain is not adequately controlled. Ice Ice your operative site at least 5 times a day for 15-30 minutes at a time. Make sure you have a thin cloth between the ice or cooling unit and your skin to prevent gomes bite. This is especially important if you received a nerve block. Continue icing your operative site for the first 5-7 days after surgery, then as needed. Diet/Nausea/Vomiting Start by drinking clear liquids and eating crackers. If you can tolerate this, then you may resume your normal diet. If you feel nauseated or vomit, take Zofran/ondansetron (if prescribed). Please call our office if you have intractable nausea or vomiting, or, if after hours, you may go to the Emergency Room for help. Constipation Constipation is a common side effect of narcotic pain medication. If you have not had a bowel movement within 2 days after surgery, we recommend purchasing an over the counter laxative such as Milk of Magnesia, Dulcolax, or Miralax from a local pharmacy, and taking it as instructed. Call our clinic if any questions. Nerve block The anesthesia team sometimes places a nerve block to help with post-operative pain control. This results in significant numbness and inability to move the extremity. The nerve block usually wears off in 8-12 hours, but sometimes can last up to 24 hours. Please call our office if you are still unable to move your extremity after 24 hours, unless you received a pain pump to take home. Nerve blocks typically wear off quickly, so start taking pain medication as soon as you start feeling soreness near your surgical site. Weight bearing and Range of Motion. Do not bear any weight through your operative extremity immediately after surgery. If you had upper extremity surgery, do not lift anything with that arm. If you are in a knee brace, keep it locked in place until your follow-up. We will discuss your weight bearing, range of motion, and lifting restrictions in detail at your first post-operative appointment. Continuous Passive Motion (CPM) Machine If you were prescribed a CPM machine, it will start after your first post- operative appointment, at which time we will give you instructions on the range of motion settings and duration of treatment Physical therapy You will be given a prescription for physical therapy or occupational therapy at your first post-operative appointment. Typically, patients start therapy within 1 week of surgery Wound care and showering We will inspect your wound at your first post-operative visit, and may do a dressing change at that time. Most patients will be in a water-proof dressing that is removed 14 days after surgery. It is normal to see some dried blood on the dressing. Do not remove your dressing, paper strips or sutures yourself unless you are given permission. Showering is allowed the day after surgery. Do not scrub or remove any dressings. The wound should not be submerged underwater (i.e. in a bathtub or pool) until 4 weeks after surgery ALE stockings If you were given white stockings, these are to be worn at all times except to shower (on both legs) for the first 2 weeks after surgery. Driving You may not drive while taking narcotic pain medication or while in a cast, splint, sling or brace. You, the patient, need to make the final determination about when you are safe to drive, however, the earliest you may consider driving after surgery is below: Hand/Wrist/Elbow Surgery: 3 days Shoulder Surgery: 2 weeks Hip,/Knee/Ankle Surgery: 4 weeks Fracture repair: 6 weeks Return to Work Your return to work depends on what surgery was done and what type of work you do. Please bring any paperwork your employer needs completed to your first post-operative visit. Also, bring a description of your job duties, as this helps us to understand what risks you may face at work. Travel Avoid long distance travel (greater than 1 hour) in airplanes and cars for the first 6 weeks after surgery. If you must travel, you need to have a Doppler ultrasound done before you travel to rule out a blood clot in your legs. Follow-up You should have a follow-up appointment already scheduled 1-2 days after surgery. If not, please contact our office to make this appointment before you leave the hospital. When to call the office It is normal to have swelling and bruising in the limb that was operated on. This will improve with time. It is also normal to have fevers for the first 2 days after surgery. Reasons you should call your doctor include: Uncontrolled pain; Nausea, vomiting, or constipation that does not improve with medication; Fevers over 101.5, chills, sweats; Drainage or bleeding from the wound; Foul odor; Spreading areas of redness; Any other concerns Pending Studies at Discharge: No Stand-Alone Forms: My [facility] Medications and DC Order Prescriptions: No Action lisinopril 20 mg Tablet 20 mg PO QAM hydrochlorothiazide 25 mg Tablet 25 mg PO QPM ibuprofen [Advil] 200 mg Tablet 200 mg PO TID PRN (Reason: Pain) Admission Data Admit Date/Time: 02/26/24 13:12 Attending Provider: Amos Fernando Admit Provider: Amos Fernando Primary Care Provider: Kj Otero Other Providers: [facility]
== END 2024-02-27 15:37 | disposition home or self-care (01) ==
LOC: ASU 09:06 → 3N 09:06